=== PATIENT | female | born 1960 | race African-American/Black ===

== ENCOUNTER 2016-10-17 14:50 | Outpatient (CLI) | payer MEDICARE | END 2016-10-17 14:51 | disposition home or self-care (01) | LOC: MADLABBHPM 14:50 | PROVIDERS: ATTEND Family Medicine | DX: Z01.419 Encounter for gynecological examination (general) (routine) without abnormal findings (principal) | CPT/HCPCS: 36415 ==

== ENCOUNTER 2017-02-09 08:21 | Outpatient (CLI) | payer MEDICARE ==
[2017-02-09 09:07] LABS: Hemoglobin A1c 6.2 % (4.0-6.0)
[2017-02-09 09:17] LABS: ALT (SGPT) 15 U/L (8-55); AST (SGOT) 13 U/L (5-34); Albumin 3.9 g/dL (3.5-5.0); Alkaline Phosphatase 58 U/L (40-150); Anion Gap 15 mmol/L (10-20); BUN (Urea Nitrogen) 8 mg/dL (9.8-20.1); Bilirubin, Total 0.3 mg/dL (0.2-1.2); Calc. Creatinine Clearance 0 mL/min (70-130); Calcium 9.7 mg/dL (7.8-10.44); Carbon Dioxide 25 mmol/L (22-29); Chloride 106 mmol/L (98-107); Estimated GFR-MDRD Greater than 90; Globulin 3.5 g/dL (2.4-3.5); Potassium 3.5 mmol/L (3.5-5.1); Protein, Total 7.4 g/dL (6.0-8.3); Sodium 142 mmol/L (136-145)
[2017-02-09 13:15] LABS: Glucose 45 mg/dL (70-105)
[2017-02-09 17:35] LABS: Creatinine, Urine 41.92 mg/dL (47-110); Microalbumin Urine Less than 1.0 mg/dL (0.5-50.0); Microalbumin/Creat Ratio 23.9 mg/g (Less than 30)
== END 2017-02-09 08:22 | disposition home or self-care (01) ==
LOC: MADLABBHPM 08:21
PROVIDERS: ATTEND Family Medicine
DX: E11.9 Type 2 diabetes mellitus without complications (principal)
CPT/HCPCS: 36415; 80053; 82043; 83036

== ENCOUNTER 2017-11-30 10:40 | Outpatient (CLI) | payer MEDICARE ==
[2017-11-30 11:26] LABS: Anion Gap 14 mmol/L (10-20); BUN (Urea Nitrogen) 9 mg/dL (9.8-20.1); Calc. Creatinine Clearance 0 mL/min (70-130); Calcium 9.6 mg/dL (7.8-10.44); Carbon Dioxide 22 mmol/L (22-29); Chloride 107 mmol/L (98-107); Estimated GFR-MDRD Greater than 90; Glucose 201 mg/dL (70-105); Magnesium 1.6 mg/dL (1.6-2.6); Potassium 4.1 mmol/L (3.5-5.1); Sodium 139 mmol/L (136-145)
== END 2017-11-30 10:41 | disposition home or self-care (01) ==
LOC: MADLABBHPM 10:40
PROVIDERS: ATTEND Family Medicine
DX: E87.6 Hypokalemia (principal); E83.42 Hypomagnesemia; E11.9 Type 2 diabetes mellitus without complications
CPT/HCPCS: 36415; 80048; 83735

== ENCOUNTER 2018-01-01 06:35 | Outpatient (CLI) | payer MEDICARE ==
[2018-01-01 07:39] LABS: ALT (SGPT) 12 U/L (8-55); AST (SGOT) 11 U/L (5-34); Albumin 3.7 g/dL (3.5-5.0); Alkaline Phosphatase 69 U/L (40-150); Anion Gap 15 mmol/L (10-20); BUN (Urea Nitrogen) 12 mg/dL (9.8-20.1); Bilirubin, Total 0.2 mg/dL (0.2-1.2); Calc. Creatinine Clearance 0 mL/min (70-130); Calcium 9.7 mg/dL (7.8-10.44); Carbon Dioxide 23 mmol/L (22-29); Cardiac Risk 4.8 (Less than 4.5); Chloride 108 mmol/L (98-107); Cholesterol 155 mg/dl (< 200 Desired); Estimated GFR-MDRD Greater than 90; Globulin 3.6 g/dL (2.4-3.5); Glucose 85 mg/dL (70-105); HDL Cholesterol 32 mg/dL (>60 Neg Risk); LDL Cholesterol, Calculated 91 mg/dL; Protein, Total 7.3 g/dL (6.0-8.3); Sodium 142 mmol/L (136-145); Triglycerides 159 mg/dL (Less than 150)
[2018-01-01 11:36] LABS: Hemoglobin A1c 7.3 % (4.0-6.0)
[2018-01-01 12:28] LABS: Creatinine, Urine 113.38 mg/dL (47-110); Microalbumin Urine 3.8 mg/dL (0.5-50.0); Microalbumin/Creat Ratio 33.5 mg/g (Less than 30)
== END 2018-01-01 06:36 | disposition home or self-care (01) ==
LOC: MADLAB 06:35
PROVIDERS: ATTEND Family Medicine
DX: E11.65 Type 2 diabetes mellitus with hyperglycemia (principal)
CPT/HCPCS: 36415; 80053; 80061; 82043; 83036; 84443

== ENCOUNTER 2019-07-29 10:12 | Emergency (ER) | payer MEDICARE | END 2019-07-29 10:58 | disposition home or self-care (01) | LOC: MADERS 10:12 | DX: B02.9 Zoster without complications (principal); M06.9 Rheumatoid arthritis, unspecified; E11.9 Type 2 diabetes mellitus without complications; E78.00 Pure hypercholesterolemia, unspecified; E78.5 Hyperlipidemia, unspecified; I10 Essential (primary) hypertension; M32.9 Systemic lupus erythematosus, unspecified; F17.210 Nicotine dependence, cigarettes, uncomplicated; Z79.52 Long term (current) use of systemic steroids; Z79.82 Long term (current) use of aspirin; Z86.73 Personal history of transient ischemic attack (TIA), and cerebral infarction without residual deficits; Z79.4 Long term (current) use of insulin; Z79.899 Other long term (current) drug therapy | CPT/HCPCS: 99283 ==

== ENCOUNTER 2019-11-08 07:47 | Outpatient (CLI) | payer MEDICARE ==
[2019-11-08 09:20] LABS: BUN (Urea Nitrogen) 14 mg/dL (9.8-20.1); Calc. Creatinine Clearance 0 mL/min (70-130); Carbon Dioxide 25 mmol/L (23-31); Chloride 106 mmol/L (98-107); Estimated GFR-MDRD 90; Sodium 142 mmol/L (136-145)
[2019-11-08 09:21] LABS: ALT (SGPT) 20 U/L (8-55); AST (SGOT) 16 U/L (5-34); Albumin 3.8 g/dL (3.4-4.8); Alkaline Phosphatase 87 U/L (40-110); Anion Gap 15 mmol/L (10-20); Bilirubin, Total 0.3 mg/dL (0.2-1.2); Calcium 9.4 mg/dL (7.8-10.44); Globulin 3.5 g/dL (2.4-3.5); Glucose 130 mg/dL (80-115); Protein, Total 7.3 g/dL (5.8-8.1)
[2019-11-08 09:28] LABS: #Neutrophils 6.2 thou/uL (1.40-6.50); %Basophils 0.6 % (0.0-1.0); %Eosinophils 1.6 % (0.0-10.0); %Monocytes 7.1 % (0.0-10.0); %Neutrophils 68.7 % (42.0-75.0); Hemoglobin 12.4 g/dL (12.0-16.0); Mean Corpuscular Hemoglobin 30.9 pg (27.0-31.0); Mean Corpuscular Volume 93.9 fL (78.0-98.0); Mean Platelet Volume 8.8 fL (7.4-10.4); Platelet Count 159 thou/uL (130-400); RBC Distribution Width 16.9 % (11.5-14.5); White Blood Cell (WBC) Count 9.3 thou/uL (4.8-10.8)
[2019-11-08 09:29] LABS: #Basophils 0.6 thou/uL (0.0-0.2); #Eosinphils 0.1 thou/uL (0.0-0.7); #Monocytes 0.6 thou/uL (0.11-0.59)
[2019-11-08 09:31] LABS: Anisocytosis SLIGHT = 6-15 cells (100X) (0-5/hpf); Platelet Morphology Comment Appears Adequate
[2019-11-08 13:11] LABS: Hemoglobin A1c 6.9 % (4.0-6.0)
[2019-11-08 13:12] LABS: Complement-C4 8.2 mg/dL (15-57)
== END 2019-11-08 07:48 | disposition home or self-care (01) ==
LOC: MADLABBHPM 07:47
PROVIDERS: ATTEND Family Medicine
DX: E03.9 Hypothyroidism, unspecified (principal); E11.9 Type 2 diabetes mellitus without complications
CPT/HCPCS: 36415; 80053; 83036; 84443; 85025; 85652; 86140; 86160

== ENCOUNTER 2021-01-28 06:56 | Outpatient (CLI) | payer MEDICARE ==
[2021-01-28 08:14] LABS: Hemoglobin 12.9 g/dL (12.0-16.0); Mean Corpuscular HGB CONC 32.3 g/dL (32.0-36.0); Mean Corpuscular Hemoglobin 30.4 pg (27.0-31.0); Mean Corpuscular Volume 94.1 fL (78.0-98.0); Mean Platelet Volume 8.8 fL (7.4-10.4); Platelet Count 175 thou/uL (130-400); RBC Distribution Width 17.3 % (11.5-14.5); Red Blood Cell (RBC) Count 4.25 mill/uL (4.20-5.40)
[2021-01-28 12:00] LABS: Creatinine, Urine 29.47 mg/dL (47-110); Microalbumin Urine 2.1 mg/dL (0.5-50.0); Microalbumin/Creat Ratio 71.3 mg/g (Less than 30)
== END 2021-01-28 06:57 | disposition home or self-care (01) ==
LOC: MADLABBHPM 06:56
PROVIDERS: ATTEND Family Medicine
DX: D69.6 Thrombocytopenia, unspecified (principal)
CPT/HCPCS: 36415; 82043; 85027

== ENCOUNTER 2021-02-15 08:36 | Outpatient (CLI) | payer MEDICARE ==
[2021-02-15 23:16] LABS: Microalbumin-Urine 2.9 mg/dL; Microalbumin/24 Hr 7.61 mg/24 hr (Less than 30)
== END 2021-02-15 08:37 | disposition home or self-care (01) ==
LOC: MADLAB 08:36
PROVIDERS: ATTEND Family Medicine
DX: E11.9 Type 2 diabetes mellitus without complications (principal)
CPT/HCPCS: 82043

== ENCOUNTER 2021-07-13 05:27 | Outpatient (CLI) | payer MEDICARE ==
[2021-07-13 05:56] LABS: Band 1 % (5-11); Eosinophils 3 % (0-10); Lymphocytes 23 % (21-51); MDiff Complete? YES; Mean Corpuscular HGB CONC 31.9 g/dL (32.0-36.0); Mean Corpuscular Volume 93.8 fL (78.0-98.0); Mean Platelet Volume 8.3 fL (7.4-10.4); Monocytes 1 % (0-10); Neutrophil 72 % (42-75); Platelet Count 162 thou/uL (130-400); Platelet Morphology Comment Appears Adequate; RBC Distribution Width 16.1 % (11.5-14.5); RBC Morphology Normal; Red Blood Cell (RBC) Count 4.66 mill/uL (4.20-5.40)
[2021-07-13 06:01] LABS: ALT (SGPT) 15 U/L (8-55); AST (SGOT) 16 U/L (5-34); Albumin 3.6 g/dL (3.4-4.8); Alkaline Phosphatase 76 U/L (40-110); Anion Gap 15 mmol/L (10-20); BUN (Urea Nitrogen) 8 mg/dL (9.8-20.1); Bilirubin, Total 0.4 mg/dL (0.2-1.2); Calc. Creatinine Clearance 0 mL/min (70-130); Calcium 9.7 mg/dL (7.8-10.44); Carbon Dioxide 24 mmol/L (23-31); Chloride 111 mmol/L (98-107); Globulin 3.9 g/dL (2.4-3.5); Glucose 163 mg/dL (80-115); Potassium 3.8 mmol/L (3.5-5.1); Protein, Total 7.5 g/dL (5.8-8.1); Sodium 146 mmol/L (136-145)
[2021-07-13 11:39] LABS: Hemoglobin A1c 6.5 % (4.0-6.0)
[2021-07-13 12:00] LABS: Free T4 (Free Thyroxine) 0.96 ng/dL (0.70-1.48)
== END 2021-07-13 05:28 | disposition home or self-care (01) ==
LOC: MADLAB 05:27
PROVIDERS: ATTEND Family Medicine
DX: E11.9 Type 2 diabetes mellitus without complications (principal); D69.59 Other secondary thrombocytopenia; E03.9 Hypothyroidism, unspecified
CPT/HCPCS: 36415; 80053; 83036; 84439; 84443; 84481; 85007; 85027

== ENCOUNTER 2022-05-06 10:01 | Outpatient (CLI) | payer MEDICARE ==
[2022-05-06 10:41] LABS: Prothrombin Time 13.2 sec (12.0-14.7)
[2022-05-06 10:43] LABS: PTT 30.4 sec (22.9-36.1)
[2022-05-06 10:53] LABS: #Basophils 0.1 thou/uL (0.0-0.2); #Eosinphils 0.1 thou/uL (0.0-0.7); #Lymphocytes 1.5 thou/uL (1.20-3.40); #Monocytes 0.5 thou/uL (0.11-0.59); #Neutrophils 5.5 thou/uL (1.40-6.50); %Basophils 1.1 % (0.0-1.0); %Eosinophils 0.9 % (0.0-10.0); %Lymphocytes 20.1 % (21.0-51.0); %Monocytes 6.4 % (0.0-10.0); %Neutrophils 71.6 % (42.0-75.0); Hemoglobin 12.4 g/dL (12.0-16.0); Mean Corpuscular HGB CONC 33.3 g/dL (32.0-36.0); Mean Corpuscular Hemoglobin 31.6 pg (27.0-31.0); Mean Corpuscular Volume 94.8 fl (78.0-98.0); Mean Platelet Volume 9.7 fL (7.4-10.4); Platelet Count 177 thou/uL (130-400); RBC Distribution Width 15.7 % (11.5-14.5); Red Blood Cell (RBC) Count 3.91 mill/uL (4.20-5.40); White Blood Cell (WBC) Count 7.7 thou/uL (4.8-10.8)
[2022-05-06 10:56] LABS: ALT (SGPT) 8 U/L (8-55); AST (SGOT) 12 U/L (5-34); Albumin 3.7 g/dL (3.4-4.8); Alkaline Phosphatase 65 U/L (40-110); Anion Gap 12 mmol/L (10-20); BUN (Urea Nitrogen) 11 mg/dL (9.8-20.1); Bilirubin, Total 0.3 mg/dL (0.2-1.2); Calc. Creatinine Clearance 0 mL/min (70-130); Calcium 9.6 mg/dL (7.8-10.44); Carbon Dioxide 24 mmol/L (23-31); Cardiac Risk 3.6 (Less than 4.5); Chloride 107 mmol/L (98-107); Cholesterol 121 mg/dl (< 200 Desired); Estimated GFR 98; Globulin 3.3 g/dL (2.4-3.5); Glucose 75 mg/dL (80-115); HDL Cholesterol 34 mg/dL (>60 Neg Risk); LDL Cholesterol, Calculated 75 mg/dL; Potassium 4.1 mmol/L (3.5-5.1); Sodium 139 mmol/L (136-145); Triglycerides 62 mg/dL (Less than 150)
[2022-05-06 11:01] LABS: Clarity Clear (Clear); Glucose, Urine (Dipstick) Negative (Negative); Ketone, Urine Negative (Negative); Leukocyte Negative (Negative); Nitrite Positive (Negative); Protein, Urine (Dipstick) Negative (Neg-Trace); Specific Gravity, Urine 1.015 (1.005-1.030)
[2022-05-06 11:02] LABS: Bilirubin Negative (Negative); Blood, Urine Negative (Negative); Urobilinogen 0.2 mg/dL (Less than 2)
[2022-05-06 11:10] LABS: Bacteria/HPF 3+ HPF (None Seen); RBC/HPF 0-3 HPF (0-3); Thyroid Stimulating Hormone 1.3754 uIU/mL (0.35-4.94); WBC/HPF 0-3 HPF (0-3)
[2022-05-06 17:07] LABS: Hemoglobin A1c 5.6 % (4.0-6.0)
[2022-05-06 18:20] LABS: Free T4 (Free Thyroxine) 0.97 ng/dL (0.70-1.48)
== END 2022-05-06 10:02 | disposition home or self-care (01) ==
LOC: MADLAB 10:01
PROVIDERS: ATTEND Family Medicine
DX: Z01.818 Encounter for other preprocedural examination (principal); I11.9 Hypertensive heart disease without heart failure; E03.9 Hypothyroidism, unspecified; E11.9 Type 2 diabetes mellitus without complications
CPT/HCPCS: 36415; 71046; 80053; 80061; 81001; 83036; 84439; 84443; 84481; 85025; 85610; 85730; 87077; 87086